=== PATIENT | female | born 1975 | race Caucasian/White ===

== ENCOUNTER 2016-11-24 09:03 | Emergency (ER) | payer MEDICAID ==
[~2016-11-24] VITALS: Ht 165.1 cm; Wt 81.0 kg
[2016-11-24 09:07] VITALS: Ht 165.1 cm; Wt 81.0 kg
--- NOTE | 2016-11-24 09:44 | ERD ---
ER Documentation Chief Complaint Date/Time DATE: 11/24/16 TIME: 09:37 Chief Complaint dizziness with nausea/vomiting x 1 day , 15 weeks preg , no vag bleed HPI 41-year-old female who is approximately 12 weeks is complaining of dizziness with nausea vomiting since yesterday. Patient reports one episode of dizziness yesterday, states of feeling "cloudy" and almost passed out. She also felt sweaty at that time. She vomited 5 times. The episode lasted about 2 hours. She also reports repeat dizziness this morning when she tried a standing up upon awake. In addition, patient reports left flank pain. Denies dysuria. Denies fever or chills. Denies vaginal bleeding. Patient is , KAY 06/05/2017. ROS All systems reviewed and are negative except as per history of present illness. Medications Home Meds Active Scripts Acetaminophen* (Tylophen*) 500 Mg Capsule, 1 CAP PO Q6H Y for PAIN AND OR ELEVATED TEMP, #20 CAP Prov:GEO FONTAINE. NAIL PROFESSIONAL 11/24/16 Cephalexin* (Keflex*) 500 Mg Capsule, 500 MG PO BID for 7 Days, CAP Prov:GEO FONTAINE. NAIL PROFESSIONAL 11/24/16 PMhx/Soc Medical and Surgical Hx: pt denies Medical Hx Physical Exam Vitals Vital Signs Date Time Temp Pulse Resp B/P Pulse Ox O2 Delivery O2 Flow Rate FiO2 11/24/16 09:07 98.1 78 18 124/58 98 Physical Exam General: Well-developed, well-nourished, conscious and coherent, in no distress Skin: Warm and dry without rash, good texture and turgor Head: Normocephalic without evidence of trauma Eyes: Sclera and conjunctivae normal; pupils equal, round, and reactive to light; extraocular movements are intact Neck: Supple without meningismus or adenopathy. Carotids are equal. Trachea midline. No bruits or JVD Chest: Normal AP diameter, good expansion without retractions. Nontender. Lungs are clear to auscultate bilaterally with good tidal volume Heart: Regular rate and rhythm. No murmur, rub, or gallop heard Abdomen: Soft and nontender without masses, guarding, or rebound. Bowel sounds are active. No hepatosplenomegaly Back: Without spinal or CVA tenderness Pelvis: Nontender to palpation and stable to compression Extremities: Full range of motion. Good strength bilaterally. No clubbing, cyanosis, or edema. Peripheral pulses are intact. Sensation intact Neuro: Alert and oriented. Mental status normal, speech clear. Cranial nerves grossly intact Result Diagram: 11/24/16 0950 Results 24 hrs Laboratory Tests Test 11/24/16 09:45 11/24/16 09:50 Urine Color LT. YELLOW Urine Clarity CLEAR Urine pH 6.5 Urine Specific [place] 1.020 Urine Ketones NEGATIVE Urine Nitrite NEGATIVE Urine Bilirubin NEGATIVE Urine Urobilinogen 0.2 E.U./dL Urine Leukocyte Esterase 2+ Urine Microscopic RBC 5-10/HPF Urine Microscopic WBC 10-25/HPF Urine Epithelial Cells MODERATE Urine Bacteria MANY Urine Hemoglobin NEGATIVE Urine Glucose NEGATIVE% Urine Total Protein NEGATIVE White Blood Count 8.310^3/ul Red Blood Count 4.2410^6/ul Hemoglobin 9.9g/dl Hematocrit 32.8% Mean Corpuscular Volume 77.4fl Mean Corpuscular Hemoglobin 23.3pg Mean Corpuscular Hemoglobin Concent 30.2g/dl Red Cell Distribution Width 18.2% Platelet Count 18535^3/UL Mean Platelet Volume 10.5fl Neutrophils % 68.2% Lymphocytes % 23.5% Monocytes % 6.8% Eosinophils % 0.7% Basophils % 0.4% Nucleated Red Blood Cells % 0.0/100WBC Neutrophils # 5.610^3/ul Lymphocytes # 1.910^3/ul Monocytes # 0.610^3/ul Eosinophils # 0.110^3/ul Basophils # 0.010^3/ul Nucleated Red Blood Cells # 0.010^3/ul Beta HCG, Quantitative 21226.0mIU/ml PROCEDURE: OBSTETRICAL ULTRASOUND WITH ENDOVAGINAL IMAGES CLINICAL INDICATION: left flank pain, nausea TECHNIQUE: Multiple sonographic images of the pelvis were obtained utilizing a transabdominal and endovaginal technique. The images were reviewed on a PACS workstation. COMPARISON: None. FINDINGS: There is a single live intrauterine with heart rate of 179 beats per minute, mean sac diameter of 5.42 cm, and crown-rump length of 6.41 cm which is consistent with a gestational age of 12 weeks, 3-day . The estimated date of delivery by ultrasound is 06/05/2017 . The reported gestational age by LMP is 12 weeks, 3 days . The reported date of delivery by LMP is 06/05/2017 . The right ovary measures 2.3 x 1.5 x 1.8 cm. The left ovary measures 3.3 x 1.6 x 2.1 cm. There is normal vascular flow in both ovaries. No significant ovarian lesions are identified. No significant pelvic free fluid is identified. IMPRESSION: Single live intrauterine consistent with a gestational age of 12 weeks , 3 days . The estimated date of delivery is 06/05/2017 . Dating by ultrasound is consistent with dating by LMP. heart rate of 179 beats per minute is top - normal. Bilateral ovaries and adnexa are unremarkable. RPTAT: EE Cortez Gonzales Physician Date Time Electronically viewed and signed by Cortez Gonzales Physician on 11/24/2016 10:16 RA/ CC: GEO FONTAINE. NAIL PROFESSIONAL Procedures/MDM Well-appearing 41-year-old female who is 12 weeks presented ED with dizziness and left flank pain. CBC showed moderate anemia with hemoglobin 9.9, hematocrit 32.8. Patient stated that she is taking ferrous sulfate supplements 3 times a day, but does not take it with orange juice. I advised patient to continue taking ferrous sulfate supplements, but with orange juice each time to improve iron absorption. UA showed 2+ leukocyte, negative nitrite, moderate bacteria. Patient appears to have a urinary tract infection. I doubt pyelonephritis. Keflex will be prescribed for the patient for UTI. OB ultrasound also obtained, normal cardiac activity is observed. Low suspicion for threatened . Patient appears well, stable for discharge and outpatient management. Medical decision making shared with patient and family. Education provided to patient and family. Patient and family expressed understanding of the plan. Medications on discharge: Tylenol, Keflex. Follow-up: OB provider in 2-3 days or return to ED if worse. Departure Diagnosis: Primary Impression: Anemia affecting Additional Impression: UTI (urinary tract infection) Urinary tract infection type: acute cystitis Hematuria presence: without hematuria Qualified Code: N30.00 - Acute cystitis without hematuria Condition: Good GEO FONTAINE NP November 24, 2016 09:44
[2016-11-24 10:10] LABS: ADD SCAN DIFF NO
--- NOTE | 2016-11-24 10:16 | RADRPT ---
PROCEDURE: OBSTETRICAL ULTRASOUND WITH ENDOVAGINAL IMAGES CLINICAL INDICATION: left flank pain, nausea TECHNIQUE: Multiple sonographic images of the pelvis were obtained utilizing a transabdominal and endovaginal technique. The images were reviewed on a PACS workstation. COMPARISON: None. FINDINGS: There is a single live intrauterine with heart rate of 179 beats per minute, mean sa c diameter of 5.42 cm, and crown-rump length of 6.41 cm which is consistent with a gestational age o f 12 weeks, 3-day . The estimated date of delivery by ultrasound is 06/05/2017 . The reported gestational age by LMP is 12 weeks, 3 days . The reported date of delivery by LMP is 06/05/2017 . The right ovary measures 2.3 x 1.5 x 1.8 cm. The left ovary measures 3.3 x 1.6 x 2.1 cm. There is no rmal vascular flow in both ovaries. No significant ovarian lesions are identified. No significant pelvic free fluid is identified. IMPRESSION: Single live intrauterine consistent with a gestational age of 12 weeks, 3 days . The estimated date of delivery is 06/05/2017 . Dating by ultrasound is consistent with dating by LMP. heart rate of 179 beats per minute is top - normal. Bilateral ovaries and adnexa are unremarkable. RPTAT: EE Cortez Physician Janet Date Time Electronically viewed and signed by Physician Margarita on 11/24/2016 10:16 /
[2016-11-24 10:18] LABS: BASOPHILS % 0.4 % (0.0-2.0); EOSINOPHILS # 0.1 10^3/ul (0.0-0.5); EOSINOPHILS % 0.7 % (0.0-7.0); HEMATOCRIT 32.8 % (37.0-47.0); HEMOGLOBIN 9.9 g/dl (12.0-16.0); LYMPHOCYTES # 1.9 10^3/ul (0.8-2.9); LYMPHOCYTES % 23.5 % (15.0-51.0); MEAN CORPUSCULAR HEMOGLOBIN 23.3 pg (29.0-33.0); MEAN CORPUSCULAR HGB CONC 30.2 g/dl (32.0-37.0); MEAN CORPUSCULAR VOLUME 77.4 fl (82.0-101.0); MEAN PLATELET VOLUME 10.5 fl (7.4-10.4); MONOCYTE # 0.6 10^3/ul (0.3-0.9); MONOCYTES % 6.8 % (0.0-11.0); NEUTROPHIL # 5.6 10^3/ul (1.6-7.5); NEUTROPHILS % 68.2 % (39.0-77.0); PLATELET COUNT 183 10^3/UL (140-415); RED BLOOD COUNT 4.24 10^6/ul (4.20-5.40); RED CELL DISTRIBUTION WIDTH 18.2 % (11.5-14.5); WHITE BLOOD COUNT 8.3 10^3/ul (4.8-10.8)
[2016-11-24 10:22] LABS: ADD UMIC YES; URINE BILIRUBIN (Dip) NEGATIVE (NEGATIVE); URINE BLOOD (Dip) NEGATIVE (NEGATIVE); URINE COLOR LT. YELLOW (YELLOW); URINE GLUCOSE (Dip) NEGATIVE (NEGATIVE); URINE KETONES (Dip) NEGATIVE (NEGATIVE); URINE LEUKOCYTE ESTERASE (Dip) 2+ (NEGATIVE); URINE NITRITE (Dip) NEGATIVE (NEGATIVE); URINE TOTAL PROTEIN (Dip) NEGATIVE (NEGATIVE); URINE UROBILINOGEN (Dip) 0.2 E.U./dL (0.1-1.0)
[2016-11-24 10:33] LABS: BACTERIA,URINE MANY
[2016-11-24] MEDS ORDERED: ACET500C5 PO (11:33)
[2016-11-24] MEDS ORDERED: CEPH-443 PO (11:33)
[2016-11-24 13:46] VITALS: BP 118/60; PULSE 84; RESP 18; TEMP 97.9
== END 2016-11-24 13:46 | disposition home or self-care (01) ==
LOC: FTE 09:03
DX: O99.011 Anemia complicating pregnancy, first trimester (principal); O23.11 Infections of bladder in pregnancy, first trimester; R42 Dizziness and giddiness; Z3A.12 12 weeks gestation of pregnancy
CPT/HCPCS: 36415; 76801; 81001; 81003; 84702; 85025; 86900; 86901

== ENCOUNTER 2016-11-30 10:59 | Emergency (ER) | payer MEDICAID ==
[~2016-11-30] VITALS: Wt 74.0 kg
[~2016-11-30 10:59] MED LIST: ACET500C5 PO; CEPH-443 PO
[2016-11-30 11:02] VITALS: Wt 74.0 kg
--- NOTE | 2016-11-30 13:27 | ERD ---
ER Documentation Chief Complaint Date/Time DATE: 11/30/16 TIME: 13:25 Chief Complaint 13WKS WITH VAG BLEEDING . SINCE LAST NIGHT.MILD AP NO DYSURIA HPI 41-year-old female who is , 12 weeks presents to ED today for vaginal spotting. Patient was seen here 1 week ago for the same complaints. The spotting lasted for 2 days last week. Patient stated that the spotting returned again last night, only when she is wiping. She was diagnosed with UTI 1 week ago, and is still taking antibiotics. Patient was seen by her PCP yesterday, was given RhoGam at the PCPs office. Patient also reports bilateral low back pain since yesterday. Denies pelvic pain. Denies fever or chills. ROS All systems reviewed and are negative except as per history of present illness. Medications Home Meds Active Scripts Acetaminophen* (Tylophen*) 500 Mg Capsule, 1 CAP PO Q6H Y for PAIN AND OR ELEVATED TEMP, #20 CAP Prov:GEO FONTAINE. SHIPPING ORDER CLERK 11/24/16 Cephalexin* (Keflex*) 500 Mg Capsule, 500 MG PO BID for 7 Days, CAP Prov:GEO FONTAINE. SHIPPING ORDER CLERK 11/24/16 Allergies Allergies: Coded Allergies: No Known Allergy (Unverified , 11/30/16) PMhx/Soc Medical and Surgical Hx: pt denies Medical Hx, pt denies Surgical Hx Hx Alcohol Use: No Hx Substance Use: No Hx Tobacco Use: No Smoking Status: Never smoker Physical Exam Vitals Vital Signs Date Time Temp Pulse Resp B/P Pulse Ox O2 Delivery O2 Flow Rate FiO2 11/30/16 11:02 97.4 82 21 131/84 99 Physical Exam General: Well-developed, well-nourished, conscious and coherent, in no distress Skin: Warm and dry without rash, good texture and turgor Head: Normocephalic without evidence of trauma Eyes: Sclera and conjunctivae normal; pupils equal, round, and reactive to light; extraocular movements are intact Neck: Supple without meningismus or adenopathy. Carotids are equal. Trachea midline. No bruits or JVD Chest: Normal AP diameter. Good expansion without retractions. Nontender. Lungs are clear to auscultate bilaterally with good tidal volume Heart: Regular rate and rhythm. No murmur, rub, or gallops heard Abdomen: Soft and nontender without masses, guarding, or rebound. Bowel sounds are active. No hepatosplenomegaly Back: Without spinal or CVA tenderness Pelvis: Nontender to palpation and stable to compression Extremities: Full range of motion. Good strength bilaterally. No clubbing, cyanosis, or edema. Peripheral pulses are intact. Sensation intact Neuro: Alert and oriented 4, GCS 15. Cranial nerves II-XII intact. Motor and sensory exams nonfocal. Moves all extremities. Speech clear. Gait normal Results 24 hrs Laboratory Tests Test 11/30/16 13:39 Beta HCG, Quantitative 79200.0mIU/ml PROCEDURE: US OB. CLINICAL INDICATION: Vaginal bleeding TECHNIQUE: Transabdominal views of the pelvis are available for review. COMPARISON: 11/24/2016 FINDINGS: There is a single intrauterine gestation with the crown-rump length measuring 7.2 cm, corresponding to a gestational age of 13 weeks and 2 days. The heart rate is noted at 154 bpm. The ovaries are normal in size and echogenicity. Normal Doppler flow is identified in both ovaries. The right ovary measures 2.6 x 1.5 x 1.8 cm. The left ovary measures 2.4 x 2.8 cm. There is a small cyst in the left ovary. There is no free fluid. RPTAT: AA IMPRESSION: Single live intrauterine with an estimated gestational age of 13 weeks and 2 days, based on ultrasound measurements. KAY based on ultrasound measurements is 06/05/2017. .Aditya Jhaveri MD, MD Date Time Electronically viewed and signed by .Aditya Jhaveri MD, MD on 11/30/2016 14: 25 .S/ CC: GEO FONTAINE. SHIPPING ORDER CLERK Procedures/MDM Well-appearing 41-year-old female who is approximately 13 weeks return to the ED today for vaginal spotting. Patient was seen here approximately 1 week ago for the same. She was diagnosed with UTI at that time, antibiotics was given. Patient's blood type is A-, RhoGam was not given in the previous visit. Patient had received RhoGam from her OB yesterday. Patient had a miscarriage last year at this stage of gestation, she is concerned the same thing may be happening. Patient received repeat ultrasound and beta hCG quant today. Ultrasound again showed intra-uterine with heart rate at 154 beats per minute, this is lower than 1 week ago at 179 bpm. Her beta hCG quant today is 67,000, again slightly lower than 69,000 1 week ago. It is not certain whether patient is having a threatened , I will have patient follow-up closely with her OB in the next 2 days. Patient appears well, stable for discharge and outpatient management. Medical decision making shared with patient and family. Education provided to patient and family. Patient and family expressed understanding of the plan. Medications on discharge: None. Follow-up: Primary care provider in 2-3 days or return to ED if worse. Departure Diagnosis: Primary Impression: Vaginal bleeding in patient at less than 20 weeks ges... Condition: Good Patient Instructions: Bleeding During Early Referrals: [facility] YOU HAVE RECEIVED A MEDICAL SCREENING EXAM AND THE RESULTS INDICATE THAT YOU DO NOT HAVE A CONDITION THAT REQUIRES URGENT TREATMENT IN THE EMERGENCY DEPARTMENT. FURTHER EVALUATION AND TREATMENT OF YOUR CONDITION CAN WAIT UNTIL YOU ARE SEEN IN YOUR DOCTORS OFFICE WITHIN THE NEXT 1-2 DAYS. IT IS YOUR RESPONSIBILITY TO MAKE AN APPOINTMENT FOR FOLOW-UP CARE. IF YOU HAVE A PRIMARY DOCTOR --you should call your primary doctor and schedule an appointment IF YOU DO NOT HAVE A PRIMARY DOCTOR YOU CAN CALL OUR PHYSICIAN REFERRAL HOTLINE AT IF YOU CAN NOT AFFORD TO SEE A PHYSICIAN YOU CAN CHOSE FROM THE FOLLOWING [facility] [address] [facility] [address] [facility] [address] [facility] [address] [facility] [address] [facility] [facility]. [address] [employer] [place] [address] [facility] [address] [place] [address] OFFICE FAX , [facility] [address] [place] [address] [address] NOLEN, [place] [address] [place] [address] DR MALHOTRA, [facility] [address] [address] [facility], [address], [facility] [address] [address] [facility] [address] [facility], [place] [address] [facility] [address] [place] [address] [address] [facility] [address] - [address] RAMOS SCOTT [address] [place] [address] DR GRAHAM, [facility] [address] [facility]. [address], [place] [address] [address] ANNA, [facility] [address] [place], [place] [id number] Additional Instructions: Call your primary care doctor TOMORROW for an appointment during the next 2-3 days.See the doctor sooner or return here if your condition worsens before your appointment time. GEO FONTAINE NP November 30, 2016 13:27
--- NOTE | 2016-11-30 14:25 | RADRPT ---
PROCEDURE: US OB. CLINICAL INDICATION: Vaginal bleeding TECHNIQUE: Transabdominal views of the pelvis are available for review. COMPARISON: 11/24/2016 FINDINGS: There is a single intrauterine gestation with the crown-rump length measuring 7.2 cm, corresponding to a gestational age of 13 weeks and 2 days. The heart rate is noted at 154 bpm. The ovaries are normal in size and echogenicity. Normal Doppler flow is identified in both ovaries. The right ovary measures 2.6 x 1.5 x 1.8 cm. The left ovary measures 2.4 x 2.8 cm. There is a small cyst in the left ovary. There is no free fluid. RPTAT: AA IMPRESSION: Single live intrauterine with an estimated gestational age of 13 weeks and 2 days, based o n ultrasound measurements. KAY based on ultrasound measurements is 06/05/2017. .Aditya Jhaveri MD, Date Time Electronically viewed and signed by .Aditya Jhaveri MD, on 11/30/2016 14:25 .S/
== END 2016-11-30 15:44 | disposition home or self-care (01) ==
LOC: FTE 10:59
DX: O20.9 Hemorrhage in early pregnancy, unspecified (principal); Z3A.13 13 weeks gestation of pregnancy
CPT/HCPCS: 36415; 76801; 84702; Z7502

== ENCOUNTER 2017-04-23 09:02 | Outpatient (CLI) | payer OTHER ==
[~2017-04-23] VITALS: Ht 160 cm; Wt 87.6 kg
[2017-04-23 09:06] VITALS: Ht 160 cm; Wt 87.6 kg
[2017-04-23] MEDS ORDERED: PREN1TAB79 PO (09:08)
[2017-04-23] MEDS ORDERED: CALC-143 PO (09:09)
[2017-04-23 09:10] VITALS: BP 107/69; PULSE 91; RESP 18
[2017-04-23] MEDS ORDERED: FER325 PO (09:10)
[2017-04-23 10:22] LABS: BASOPHILS % 0.2 % (0.0-2.0); EOSINOPHILS # 0.1 10^3/ul (0.0-0.5); EOSINOPHILS % 0.9 % (0.0-7.0); HEMATOCRIT 27.8 % (37.0-47.0); HEMOGLOBIN 8.4 g/dl (12.0-16.0); LYMPHOCYTES # 2.1 10^3/ul (0.8-2.9); LYMPHOCYTES % 23.5 % (15.0-51.0); MEAN CORPUSCULAR HEMOGLOBIN 23.7 pg (29.0-33.0); MEAN CORPUSCULAR HGB CONC 30.2 g/dl (32.0-37.0); MEAN CORPUSCULAR VOLUME 78.3 fl (82.0-101.0); MEAN PLATELET VOLUME 11.3 fl (7.4-10.4); MONOCYTE # 0.6 10^3/ul (0.3-0.9); MONOCYTES % 6.7 % (0.0-11.0); NEUTROPHILS % 67.7 % (39.0-77.0); PLATELET COUNT 200 10^3/UL (140-415); RED BLOOD COUNT 3.55 10^6/ul (4.20-5.40); RED CELL DISTRIBUTION WIDTH 16.6 % (11.5-14.5); WHITE BLOOD COUNT 8.9 10^3/ul (4.8-10.8)
[2017-04-23 10:44] LABS: ADD UMIC YES; UR ASCORBIC ACID 40 mg/dL (NEGATIVE); UR BACTERIA FEW /HPF (NONE SEEN); UR BILIRUBIN (Dip) NEGATIVE (NEGATIVE); UR BLOOD (Dip) NEGATIVE (NEGATIVE); UR CLARITY CLOUDY (CLEAR); UR COLOR YELLOW (YELLOW); UR GLUCOSE (Dip) NEGATIVE (NEGATIVE); UR KETONES (Dip) NEGATIVE (NEGATIVE); UR LEUKOCYTE ESTERASE (Dip) 3+ Leu/ul (NEGATIVE); UR MUCUS MANY /HPF (NONE SEEN); UR NITRITE (Dip) NEGATIVE (NEGATIVE); UR RBC 17 /HPF (0-5); UR SPECIFIC GRAVITY (Dip) 1.023 (1.003-1.030); UR SQUAMOUS EPITHELIAL CELL MANY /HPF (FEW); UR TOTAL PROTEIN (Dip) 1+ mg/dl (NEGATIVE); UR UROBILINOGEN (Dip) 1+ mg/dL (NEGATIVE)
--- NOTE | 2017-04-23 10:57 | RADRPT ---
PROCEDURE: Obstetrical ultrasound for biophysical profile CLINICAL INDICATION: Biophysical profile. . TECHNIQUE: Obstetrical ultrasound of the uterus for biophysical profile. Transabdominal views are obtained. COMPARISON: 11/30/2016 FINDINGS: Single intrauterine gestation. Presentation: Cephalic. Placenta: Anterior. No evidence of placental abruption. No evidence of placenta previa. breathing movement = 2/2 tone = 2/2 motion = 2/2 ARBEN = 2/2 ARBEN = 14.9 cm heart rate: 142 beats per minute IMPRESSION: Single intrauterine gestation. Biophysical profile 03/01 RPTAT: AADD .Seng Smith MD, MD Date Time Electronically viewed and signed by .Seng Smith MD, on 04/23/2017 10:56 .B/
--- NOTE | 2017-04-23 13:14 | CONS ---
Date/Time of Note Date/Time of Note DATE: 04/23/17 TIME: 13:07 Consultation Date/Type/Reason Admit Date/Time April 23, 2017 OB triage consult This patient is a 42 years old 4 para 3 living 3 who old or 3 previous deliveries by section estimated date of confinement is 05/30/2017 which makes her 34 weeks and 5 days now. She came to triage complaining of the low back pain and mentioned slight vaginal spotting On examination she is a well-developed well-nourished patient does not seem to be in any acute distress. Her general vital signs are normal with blood pressure 107/69 pulse rate 91 respiration 18 and temperature 98.2 heart rate tracing appeared to be normal with fairly good variability and occasional accelerations no decelerations. Rare contractions ,not in labor. On pelvic examination vulva and vagina are normal no evidence of vaginal bleeding ,cervix is closed thick and high. Reason for Consultation Laboratory Tests Test 04/23/17 10:12 White Blood Count 8.910^3/ul Red Blood Count 3.5510^6/ul Hemoglobin 8.4g/dl Hematocrit 27.8% Mean Corpuscular Volume 78.3fl Mean Corpuscular Hemoglobin 23.7pg Mean Corpuscular Hemoglobin Concent 30.2g/dl Red Cell Distribution Width 16.6% Platelet Count 34872^3/UL Mean Platelet Volume 11.3fl Neutrophils % 67.7% Lymphocytes % 23.5% Monocytes % 6.7% Eosinophils % 0.9% Basophils % 0.2% Nucleated Red Blood Cells % 0.0/100WBC Neutrophils # 6.010^3/ul Lymphocytes # 2.110^3/ul Monocytes # 0.610^3/ul Eosinophils # 0.110^3/ul Basophils # 0.010^3/ul Nucleated Red Blood Cells # 0.010^3/ul Urine Color YELLOW Urine Clarity CLOUDY Urine pH 5.0 Urine Specific [place] 1.023 Urine Ketones NEGATIVEmg/dL Urine Nitrite NEGATIVEmg/dL Urine Bilirubin NEGATIVEmg/dL Urine Urobilinogen 1+mg/dL Urine Leukocyte Esterase 3+Elmo/ul Urine Microscopic RBC 17/HPF Urine Microscopic WBC 26/HPF Urine Squamous Epithelial Cells MANY/HPF Urine Bacteria FEW/HPF Urine Mucus MANY/HPF Urine Hemoglobin NEGATIVEmg/dL Urine Glucose NEGATIVEmg/dL Urine Total Protein 1+mg/dl Constitutional: No chills, No diaphoresis, No disoriented, No febrile, No improved, No no complaints, No other, No poor po, No requiring IVF, No requiring O2 Eyes: No discharge, No no complaints, No other, No pain, No redness, No visual change ENT: No bleeding, No congestion, No discharge, No dysphagia, No no complaints, No other, No pain, No sore throat Respiratory: No cough, No no complaints, No other, No pain, No pleuritic pain, No shortness of breath, No sputum, No wheezing Cardiovascular: No chest pain, No edema, No lightheadedness, No no complaints, No orthopenea, No other, No palpitations, No paroxysmal nocturnal dyspnea Gastrointestinal: No blood, No constipation, No decreased appetite, No diarrhea , No flatus, No nausea, No no complaints, No other, No pain, No passing stool, No vomiting Genitourinary: other (As I mentioned on pelvic examination the cervix was closed thick and hollowing and no evidence of vaginal bleeding), No bleeding, No discharge, No dysuria, No flank pain, No hematuria, No no complaints Musculoskeletal: No back pain, No bone/joint pain, No neck pain, No no complaints, No other, No restricted range of motion, No swelling Skin: No bruising, No erythema, No laceration, No no complaints, No other, No pruritis, No rash, No skin lesions Neurologic: No confusion, No dizziness, No focal-weakness, No headache, No no complaints, No other, No seizure, No syncope Endocrine: No dry skin, No no complaints, No other, No polydypsia, No polyuria , No temp intolerance Additional Comments On laboratory study ,her urinalysis showed 1+ protein with elevated WBC and RBCs , negative for glucose ketone or nitrate. On the CBC she had a hemoglobin of 11.4 hematocrit 27.8 WBC 8.9 On ultrasound study ;report is a single intrauterine gestation in cephalic presentation ,amniotic fluid index was reported 14.9 cm The biophysical profile of 03/01 With these findings with the diagnosis of possible urinary tract infection ;a prescription was given for Macrobid 100 mg twice daily. Clean-catch specimen was sent for culture and sensitivity. Patient was advised to return to her [facility] and asked to check the result of the culture and sensitivity to adjust the antibiotic accordingly if needed. End of dictation Social History Smoking Status: Never smoker Exam/Review of Systems Vital Signs Vitals Vital Signs Date Time Temp Pulse Resp B/P Pulse Ox O2 Delivery O2 Flow Rate FiO2 04/23/17 09:10 98.2 91 18 107/69 Room Air Results Result Diagram: 04/23/17 1012 Results 24 hrs Laboratory Tests Test 04/23/17 10:12 White Blood Count 8.9 Red Blood Count 3.55 L Hemoglobin 8.4 L Hematocrit 27.8 L Mean Corpuscular Volume 78.3 L Mean Corpuscular Hemoglobin 23.7 L Mean Corpuscular Hemoglobin Concent 30.2 L Red Cell Distribution Width 16.6 H Platelet Count 200 Mean Platelet Volume 11.3 H Neutrophils % 67.7 Lymphocytes % 23.5 Monocytes % 6.7 Eosinophils % 0.9 Basophils % 0.2 Nucleated Red Blood Cells % 0.0 Neutrophils # 6.0 Lymphocytes # 2.1 Monocytes # 0.6 Eosinophils # 0.1 Basophils # 0.0 Nucleated Red Blood Cells # 0.0 Urine Color YELLOW Urine Clarity CLOUDY A Urine pH 5.0 Urine Specific [place] 1.023 Urine Ketones NEGATIVE Urine Nitrite NEGATIVE Urine Bilirubin NEGATIVE Urine Urobilinogen 1+ H Urine Leukocyte Esterase 3+ H Urine Microscopic RBC 17 H Urine Microscopic WBC 26 H Urine Squamous Epithelial Cells MANY A Urine Bacteria FEW A Urine Mucus MANY A Urine Hemoglobin NEGATIVE Urine Glucose NEGATIVE Urine Total Protein 1+ H WAYNE MALHOTRA MD Apr 23, 2017 13:14
--- NOTE | 2017-04-23 13:20 | TRIAGE ---
OB Triage Datetime Report Generated by CPN: 04/23/2017 13:20 Datetime: 04/23/2017 13:01 Labor Evaluation Frequency: X2 Monitor Mode: External Duration (sec)2399: 40-60 Pattern: Normal: <= 5 Contractions in 10 Minutes Resting Tone [place]: Relaxed Heart Rate FHR Baseline Rate: 130 Monitor Mode: External US Variability: Moderate 6-25 bpm Accelerations: 15X15 Decelerations: None Category: Category I Pain Assessment Pain Scale: 3 Pain Presence: Intermittent Pain Type: Ache Pain Location: Back Pain Relief Measures: Comfort Measures Datetime: 04/23/2017 11:57 Labor Evaluation Frequency: 0 Monitor Mode: External Pattern: Normal: <= 5 Contractions in 10 Minutes Resting Tone [place]: Relaxed Heart Rate FHR Baseline Rate: 130 Monitor Mode: External US Variability: Moderate 6-25 bpm Accelerations: 15X15 Decelerations: None Category: Category I Datetime: 04/23/2017 10:59 Labor Evaluation Frequency: irreg Monitor Mode: External Duration (sec)2399: 50-70 Pattern: Normal: <= 5 Contractions in 10 Minutes Resting Tone [place]: Relaxed Heart Rate FHR Baseline Rate: 130 Monitor Mode: External US Variability: Moderate 6-25 bpm Accelerations: 15X15 Decelerations: None Category: Category I Pain Assessment Pain Scale: 5 Pain Presence: Intermittent Pain Type: Ache Pain Location: Back Pain Relief Measures: Comfort Measures Pain Assessment Comments: PT. STATES SHE FEELS A LOT BETTER Datetime: 04/23/2017 10:22 Vaginal Exam Dilatation (cms): 0.0 Effacement (%): 0 Station: -3 Exam By: DR. FOROOHAR Datetime: 04/23/2017 09:50 Labor Evaluation Frequency: IRREG Monitor Mode: External Duration (sec)2399: 50-90 Pattern: Normal: <= 5 Contractions in 10 Minutes Resting Tone [place]: Relaxed Heart Rate FHR Baseline Rate: 130 Monitor Mode: External US Variability: Moderate 6-25 bpm Accelerations: 15X15 Decelerations: None Category: Category I Datetime: 04/23/2017 09:15 Pain Assessment Pain Scale: 9 Pain Presence: Intermittent Pain Type: Ache Pain Location: Back Pain Relief Measures: Comfort Measures Datetime: 04/23/2017 09:14 Temperature Route: Oral Datetime: 04/23/2017 09:09 EGA: 34.5 Datetime: 04/23/2017 09:04 Stage of : OB Triage Assessment Type: Admission Assessment Maternal Assessment Level of Consciousness: Fully Conscious DTR's/Clonus: DTRs 2+; No Clonus Headache: Denies Blurred Vision: No Respiratory Effort: Unlabored; Regular Rhythm; Equal Expansion Breath Sounds, Left: Clear and Equal Breath Sounds, Right: Clear and Equal Nausea/Vomiting: Denies RUQ Epigastric Pain: Denies Lower Extremities Edema: None Degree: None Upper Extremities Edema: None Degree: None Facial Edema: None Fall Risk Assessment History of Falling: (0) No Secondary Diagnosis: (0) No Ambulatory Aid: (0) Bedrest/Nurse Assist IV Therapy: (0) No Gait: (0) Normal/Bedrest/Immobile Mental Status: (0) Oriented to Own Ability Fall Score: 0 Fall Risk Score Definition: No Risk: No action required Datetime: 04/23/2017 09:03 Time of Arrival: 04/23/2017 08:54 Arrived By: Ambulatory Arrived From: Home Chief Complaint: c/o back pain since 0630 am Movement: Present Contractions: Denies/Absent Rupture of Membranes: Denies Vaginal Bleeding: None Vaginal Discharge: Denies Recent Sexual Intercouse: Denies Abdominal Trauma: Not Applicable Patient Complaints: Back Pain Time Provider Notified: 04/23/2017 09:18 Provider Notified: MARYA Initial Plan: TOCO/US. U/A- 1+ PROTEIN, CBC- WBC 8.9, BPP-8/8, ARBEN-14.9, SVE 0/0/-3
[2017-04-23] MEDS ORDERED: NITR-58 PO ×2 (13:30→13:33)
== END 2017-04-23 13:35 | disposition home or self-care (01) ==
LOC: OBT 09:02 → L-D 09:03 → OBT 13:35
PROVIDERS: ATTEND Obstetrics & Gynecology
DX: O26.893 Other specified pregnancy related conditions, third trimester (principal); M54.5 Low back pain; O46.8X3 Other antepartum hemorrhage, third trimester; Z3A.34 34 weeks gestation of pregnancy
CPT/HCPCS: 76818; 81001; 85025; 87086; Z7500; G0463

== ENCOUNTER 2018-09-06 21:23 | Emergency (ER) | payer OTHER ==
[~2018-09-06] VITALS: Ht 165.1 cm; Wt 83.0 kg
[~2018-09-06 21:23] MED LIST changes: -ACET500C5 PO; +CALC-143 PO; -CEPH-443 PO; +FER325 PO; +NITR-58 PO; +PREN1TAB79 PO
[2018-09-06 21:57] VITALS: Ht 165.1 cm; Wt 83.0 kg
[2018-09-06] MEDS ORDERED: ONDANSETRON 4 MG INJ IV STA (23:20)
[2018-09-06] MEDS ORDERED: morphine 4 MG/ML VIAL IV STA (23:20)
--- NOTE | 2018-09-06 23:23 | ERD ---
ER Documentation Chief Complaint Chief Complaint PELVIC PAIN X 9 DAYS, NO VAG BLEEDING HPI This is a 43-year-old female presents emergency department with complaints of pelvic pain for about 9 days. Pain was described as sharp and nonradiating. LMP: A week ago. M1. Denies headache, dizziness, blurry vision, changes in vision, neck pain, neck stiffness, throat pain, difficulty swallowing, difficulty breathing lying flat, loss of bowel bladder control, urinary symptoms, or possibility of being , vaginal bleeding, vaginal discharge, trauma, injury, falls, recent surgery in the last 3 weeks, recent travel, recent long travel, leg pain, difficulty walking, numbness or tingling sensation, recent exposure to any illness, recent antibiotic use in the last 3 months, fever, chills. ROS All systems reviewed and are negative except as per history of present illness. Medications Home Meds Active Scripts Dicyclomine HCl (Dicyclomine HCl) 10 Mg Capsule, 10 MG PO TID PRN for ABDOMINAL CRAMPING, #20 CAP Prov:ROSYJUSTINOPRETTY Ortiz 09/07/18 Metoclopramide* (Reglan*) 10 Mg Tablet, 10 MG PO Q6 PRN for NAUSEA AND/OR VOM ITING, #20 TAB Prov:NILSAVANESSAPRETTY 09/07/18 Cephalexin* (Keflex*) 500 Mg Capsule, 500 MG PO TID for 7 Days, CAP Prov:NILSAVANESSAPRETTY 09/07/18 Omeprazole* (Omeprazole*) 40 Mg Capsule.dr, 40 MG PO DAILY, #30 CAP Prov:ROSYJUSTINOPRETTY Ortiz 09/07/18 Naproxen* (Naprosyn*) 500 Mg Tablet, 500 MG PO BID PRN for PAIN AND/OR INFLAMMATION, #30 TAB Prov:NILSAVANESSAPRETTY Ortiz 09/07/18 Tramadol HCl (Tramadol HCl) 50 Mg Tablet, 50 MG PO Q4 PRN for SEVERE PAIN LEVEL 7-10, #6 TAB Prov:NILSAVANESSAPRETTY 09/07/18 Reported Medications Nitrofurantoin Monohyd Macrocr* (Macrobid*) 100 Mg Capsr, 100 MG PO BID, CAP 04/23/17 Ferrous Sulfate* (Ferrous Sulfate*) 325 Mg Tabec, 325 MG PO TID, TAB 04/23/17 Calcium Citrate/Vitamin D (Citracal-Vitamin D 200 MG-250) 1 Each Tablet, 1 EACH PO BID, TAB 04/23/17 Vit W-Ca,Fe,FA(<1 mg) ( Vitamins) 1 Each Tablet, 1 EACH PO, TAB 04/23/17 Allergies Allergies: Coded Allergies: No Known Allergy (Unverified , 11/30/16) PMhx/Soc Medical and Surgical Hx: pt denies Medical Hx History of Surgery: Yes (C SEC X'S 4) Anesthesia Reaction: No Hx Alcohol Use: No Hx Substance Use: No Hx Tobacco Use: No Smoking Status: Never smoker Physical Exam Vitals Physical Exam Const: No acute distress Head: Atraumatic Eyes: Normal Conjunctiva ENT: Normal External Ears, Nose and Mouth. Neck: Full range of motion. No meningismus. Resp: Clear to auscultation bilaterally Cardio: Regular rate and rhythm, no murmurs Abd: Soft, non tender, non distended. Normal bowel sounds. Examined with female binman, RN. Negative [place] sign. Negative Nilay sign (heel jar test). Negative psoas sign. Negative Rovsing sign. No CVA tenderness. Skin: No petechiae or rashes Back: No midline or flank tenderness Ext: No cyanosis, or edema Neur: Awake and alert. No neurological deficits. Psych: Normal Mood and Affect Results 24 hrs Laboratory Tests Test 09/06/18 23:55 09/07/18 00:11 White Blood Count 8.6 10^3/ul Red Blood Count 4.07 10^6/ul Hemoglobin 8.5 g/dl Hematocrit 30.5 % Mean Corpuscular Volume 74.9 fl Mean Corpuscular Hemoglobin 20.9 pg Mean Corpuscular Hemoglobin Concent 27.9 g/dl Red Cell Distribution Width 18.2 % Platelet Count 321 10^3/UL Mean Platelet Volume 10.7 fl Immature Granulocytes % 0.400 % Neutrophils % 58.0 % Lymphocytes % 31.3 % Monocytes % 8.3 % Eosinophils % 1.6 % Basophils % 0.4 % Nucleated Red Blood Cells % 0.0 /100WBC Immature Granulocytes # 0.030 10^3/ul Neutrophils # 5.0 10^3/ul Lymphocytes # 2.7 10^3/ul Monocytes # 0.7 10^3/ul Eosinophils # 0.1 10^3/ul Basophils # 0.0 10^3/ul Nucleated Red Blood Cells # 0.0 10^3/ul Urine Color YELLOW Urine Clarity SLIGHTLY CLOUDY Urine pH 5.0 Urine Specific [place] 1.025 Urine Ketones NEGATIVE mg/dL Urine Nitrite NEGATIVE mg/dL Urine Bilirubin NEGATIVE mg/dL Urine Urobilinogen NEGATIVE mg/dL Urine Leukocyte Esterase 2+ [place]/ul Urine Microscopic RBC 3 /HPF Urine Microscopic WBC 49 /HPF Urine Squamous Epithelial Cells FEW /HPF Urine Bacteria FEW /HPF Urine Mucus MODERATE /HPF Urine Hemoglobin NEGATIVE mg/dL Urine Glucose NEGATIVE mg/dL Urine Total Protein NEGATIVE mg/dl Sodium Level 143 mmol/L Potassium Level 3.7 mmol/L Chloride Level 108 mmol/L Carbon Dioxide Level 25 mmol/L Anion Gap 10 Blood Urea Nitrogen 12 mg/dl Creatinine 0.61 mg/dl Est Glomerular Filtrat Rate mL/min > 60 mL/min Glucose Level 97 mg/dl Calcium Level 9.0 mg/dl Total Bilirubin 0.0 mg/dl Direct Bilirubin 0.00 mg/dl Indirect Bilirubin 0.0 mg/dl Aspartate Amino Transf (AST/SGOT) 25 IU/L Alanine Aminotransferase (ALT/SGPT) 13 IU/L Alkaline Phosphatase 122 IU/L Total Protein 8.3 g/dl Albumin 4.1 g/dl Globulin 4.20 g/dl Albumin/Globulin Ratio 0.97 Amylase Level 63 U/L Lipase 79 U/L POC Beta HCG, Qualitative NEGATIVE Current Medications Medications Dose Sig/Peter Start Time Status Last (Trade) Ordered Route PRN Stop Time Admin Dose Reason Admin Sodium 1,000 ml @ Q1H ONCE 09/06/18 DC 09/07/18 Chloride 1,000 mls/hr IV 23:30 00:19 09/07/18 00:29 Ondansetron 4 mg ONCE STAT 09/06/18 DC 09/07/18 HCl (Zofran IV 23:20 00:19 Inj) 09/06/18 23:23 Morphine 4 mg ONCE STAT 09/06/18 DC 09/07/18 Sulfate IV 23:20 00:18 (morphine) 09/06/18 23:23 Procedures/MDM Diagnostic tests: POC urine : Negative. Urinalysis: Reviewed. Culture urine: Sent. Blood works: Anemia. Pelvic ultrasound: 1. Unremarkable ovaries cysts as specifically demonstrating no evidence of torsion. 2. Limited assessment of the uterus. Nabothian cysts. CT of the abdomen and pelvis without contrast: No acute abnormality identified within the abdomen and pelvis. Cholelithiasis. Ultrasound of the gallbladder: 1. Tiny gallstones/sludge is noted within the gallbladder without additional sonographic evidence for acute cholecystitis. Treatment: Saline lock. Normal saline IV bolus. Morphine IV. Zofran IV. Re-evaluation: No episode of emesis in the emergency department. No abdominal tenderness. No CVA tenderness. Ambulatory with steady gait. Differential diagnosis I have low suspicion for ovarian torsion, ovarian cyst rupture, hemorrhaging. Final diagnosis: Cholelithiasis. Anemia. UTI. Prescription: Bentyl. Naprosyn. Omeprazole. Tramadol. Keflex. Follow-up with PCP in the next 24-48 hours. Come back here in the emergency department for any new symptoms or any worsening symptoms. All questions and concerns were answered. Patient and family members verbalized understanding and agreed with plan of care. Hemodynamically stable on discharge. Departure Diagnosis: Primary Impression: Cholelithiasis Additional Impression: UTI (urinary tract infection) Condition: Stable Additional Instructions: Follow-up with PCP in the next 24-48 hours. Come back here in the emergency department for any new symptoms or any worsening symptoms. PRETTY CASTRO Sep 06, 2018 23:23
[2018-09-06] MEDS ORDERED: SOD CHLORIDE 0.9% 1,000 ML IV ONE (23:30)
[2018-09-07] MEDS ORDERED: NAPR-985 PO (04:54)
[2018-09-07] MEDS ORDERED: OMEP40CA6 PO (04:54)
[2018-09-07] MEDS ORDERED: TRAM50TA2 PO (04:54)
[2018-09-07] MEDS ORDERED: CEPH-443 PO (04:55)
[2018-09-07] MEDS ORDERED: DICY10CA40 PO (04:55)
[2018-09-07] MEDS ORDERED: METO10TA92 PO (04:55)
[2018-09-07 05:12] VITALS: BP 119/85; PULSE 100; RESP 20
== END 2018-09-07 05:13 | disposition home or self-care (01) ==
LOC: FTE 21:23
DX: K80.20 Calculus of gallbladder without cholecystitis without obstruction (principal); D64.9 Anemia, unspecified; N39.0 Urinary tract infection, site not specified
CPT/HCPCS: 74176; 76705; 76830; 76856; 80053; 81001; 81025; 82150; 83690; 85025; 87086; 96374; 96375; J2270; J2405; J7030; Z7502